=== PATIENT | male | born 1975 | race Asian ===

== ENCOUNTER 2017-11-19 10:12 | Emergency (ER) | payer OTHER ==
[2017-11-19] MEDS ORDERED: NS 1,000 ML IV ONE (10:42)
[2017-11-19 12:01] LABS: PLATELET COUNT 194 10^3/uL (150-400)
[2017-11-19 13:04] VITALS: RESP 18
--- NOTE | 2017-11-19 14:04 | EDPHY ---
H & P Time Seen by Provider: 11/19/17 10:42 HPI/ROS: HPI Flu symptoms. 42-year-old male by private vehicle with his . This patient reports onset of nasal congestion, fever, nonproductive cough, myalgias and arthralgias night. These have persisted since that time. He reports that today he was coughing. He coughed a small amount of blood up with his saliva of and sputum. This is what prompted him to come to the emergency department. He reports continued symptoms as above. ROS: Constitutional: Subjective fevers. Increased fatigue. Eyes: No discharge. No changes in vision. ENT: No sore throat. As above. Respiratory: As above. No shortness of breath. Cardiac: No chest pain, no palpitations. Gastrointestinal: No abdominal pain, no vomiting, no diarrhea. Genitourinary: No hematuria. No dysuria or increased frequency with urination. Musculoskeletal: As above. Skin: No rashes. Neurological: No headache. No focal weakness or altered sensation. Past medical history: Denies any significant past medical history. Social history: Nonsmoker. Here with his . No alcohol. Physical Exam: General Appearance: Alert, no distress. This patient is responding to questions appropriately and in full sentences. This patient appears well- hydrated and well-nourished. Eyes: Pupils equal and round no pallor or injection. No lid edema, erythema or injection. Respiratory: There are no retractions, lungs are clear to auscultation with good air movement bilaterally. Cardiovascular: Regular rate and rhythm. No murmur. Neurological: Motor sensory function is grossly intact. Cranial nerves are normal. Gait is normal. Skin: Warm and dry, no rashes. Musculoskeletal: Neck is supple and nontender. No stridor on auscultation of his neck. No significant cervical, submandibular, submental lymphadenopathy. Extremities are symmetrical. All joints range without pain or impingement. Psychiatric: No agitation. No depression. Database: EKG: Imaging: Chest x-ray PA and lateral; the cardiac mediastinal silhouette is unremarkable. No evidence of infiltrate or pneumothorax. Mild bronchitis. No other acute cardiopulmonary disease process noted. Interpreted by me. Procedures: Emergency department course: Vital signs reviewed. Patient afebrile. Moderately hypertensive. Vital signs otherwise normal. He does not appear toxic. Chest x-ray obtained. Influenza PCR obtained. 1:45 p.m., patient re-evaluated. He appears comfortable at this time. Results of his chest x-ray discussed, diagnosis of influenza B discussed. I discussed the dosing parameters of Tamiflu. This patient is requesting this medication despite this as well as my brief discussion on its utility. I reviewed ibuprofen dosing with him. He is using NyQuil at night which I feel is a good idea to help him sleep. I discussed supportive care. He feels comfortable going home with his . Follow-up and return to emergency department precautions reviewed. All of his questions were answered. He was discharged in good condition. Differential Diagnosis: The differential diagnosis on this patient includes but is not limited to influenza. Pneumonia, other serious bacterial infection unlikely. This represents a partial list of diagnoses considered. These considerations are based on history, physical exam, past history, reassessment and diagnostic testing. Smoking Status: Never smoked Constitutional: Initial Vital Signs Temperature (C) 36.8 C 11/19/17 10:15 Heart Rate 86 11/19/17 10:15 Respiratory Rate 16 11/19/17 10:15 Blood Pressure 165/98 H 11/19/17 10:15 O2 Sat (%) 96 11/19/17 10:15 O2 Delivery Mode Room Air Allergies/Adverse Reactions: No Known Allergies Allergy (Verified 11/19/17 10:13) Home Medications: Medication Instructions Recorded Oseltamivir Phosphate [Tamiflu 75 75 mg PO BID #10 cap 11/19/17 mg (RX)] Medical Decision Making - Diagnostics Imaging Results: Imaging Impressions Chest X-Ray 11/19/17 10:43 Impression: Normal except for minimal airways disease/bronchitis. - Data Points Laboratory Results: Laboratory Results 11/19/17 11:48 11/19/17 11:48 11/19/17 11/19/17 11/19/17 11:48 11:48 11:25 WBC 3.43 10^3/uL L 10^3/uL (3.80-9.50) RBC 5.45 10^6/uL 10^6/uL (4.40-6.38) Hgb 16.3 g/dL g/dL (13.7-17.5) Hct 45.7 % % (40.0-51.0) MCV 83.9 fL fL (81.5-99.8) MCH 29.9 pg pg (27.9-34.1) MCHC 35.7 g/dL g/dL (32.4-36.7) RDW 12.5 % % (11.5-15.2) Plt Count 194 10^3/uL 10^3/uL (150-400) MPV 9.8 fL fL (8.7-11.7) Neut % (Auto) Not Reported Lymph % (Auto) Not Reported [place] % (Auto) Not Reported Eos % (Auto) Not Reported Baso % (Auto) Not Reported Nucleat RBC Rel Count 0.0 % % (0.0-0.2) Absolute Neuts (auto) Not Reported Absolute Lymphs (auto) Not Reported Absolute Monos (auto) Not Reported Absolute Eos (auto) Not Reported Absolute Basos (auto) Not Reported Absolute Nucleated RBC 0.00 10^3/uL 10^3/uL (0-0.01) Immature Gran % Not Reported Seg Neutrophils % 40 % % Band Neutrophils % 2 % % Lymphocytes % 34 % % Monocytes % 23 % % Eosinophils % 1 % % Immature Gran # Not Reported Absolute Seg Neuts 1.37 10^/uL L 10^/uL (1.70-6.50) Absolute Band Neuts 0.07 10^3/uL 10^3/uL (0.00-0.70) Absolute Lymphocytes 1.17 10^3/uL 10^3/uL (1.00-3.00) Absolute Monocytes 0.79 10^3/uL 10^3/uL (0.30-0.80) Absolute Eosinophils 0.03 10^3/uL 10^3/uL (0.03-0.40) RBC/WBC/PLT Morphology NORMAL (NORMAL) Platelet Estimate ADEQUATE (ADEQ) Smear Review By Pending Sodium 148 mEq/L H mEq/L REJ (135-145) Potassium 3.9 mEq/L mEq/L TNP (3.5-5.2) Chloride 110 mEq/L mEq/L TNP (97-110) Carbon Dioxide 21 mEq/l L mEq/l TNP (22-31) Anion Gap 17 mEq/L H mEq/L TNP (8-16) BUN 6 mg/dL L mg/dL TNP (7-23) Creatinine 0.7 mg/dL mg/dL TNP (0.7-1.3) Estimated GFR > 60 TNP Glucose 117 mg/dL H mg/dL TNP (70-100) Calcium 8.9 mg/dL mg/dL TNP (8.5-10.4) 11/19/17 11:25 WBC REJ RBC TNP Hgb TNP Hct TNP MCV TNP MCH TNP MCHC TNP RDW TNP Plt Count TNP MPV TNP Neut % (Auto) TNP Lymph % (Auto) TNP [place] % (Auto) TNP Eos % (Auto) TNP Baso % (Auto) TNP Nucleat RBC Rel Count TNP Absolute Neuts (auto) TNP Absolute Lymphs (auto) TNP Absolute Monos (auto) TNP Absolute Eos (auto) TNP Absolute Basos (auto) TNP Absolute Nucleated RBC TNP Immature Gran % TNP Seg Neutrophils % Band Neutrophils % Lymphocytes % Monocytes % Eosinophils % Immature Gran # TNP Absolute Seg Neuts Absolute Band Neuts Absolute Lymphocytes Absolute Monocytes Absolute Eosinophils RBC/WBC/PLT Morphology Platelet Estimate Smear Review By Sodium Potassium Chloride Carbon Dioxide Anion Gap BUN Creatinine Estimated GFR Glucose Calcium Microbiology Results: MICROBIOLOGY 11/19/17 11:25 Nasal, Sinus - [place] Viral Transport Respiratory Panel ( PCR) - Final Influenza Virus Type B Departure - Departure Disposition: Home, Routine, Self-Care Clinical Impression: Influenza B Condition: Good Instructions: Influenza (ED) Additional Instructions: Read and follow provided instructions. Follow-up with your primary care physician in 1-2 days for re-evaluation. Take medication as prescribed for influenza. Ibuprofen dosin mg every 6 hr with meals for the next 3 days only to treat muscle aches and joint aches. Keep well hydrated. Drink lots of fluids. Get plenty of rest. Continue using NyQuil at night to help you sleep. Return to the emergency department for worsening symptoms, worsening cough, difficulty breathing or other serious concerns. Referrals: NONE *PRIMARY CARE P,. [Primary Care Provider] - As per Instructions Prescriptions: Oseltamivir Phosphate [Tamiflu 75 mg (RX)] 75 mg PO BID #10 cap
[2017-11-19 14:32] VITALS: BP 130/87; PULSE 69; TEMP 97.9; O2SAT 96
== END 2017-11-19 14:32 | disposition home or self-care (01) ==
DX: J10.1 Influenza due to other identified influenza virus with other respiratory manifestations (principal); E86.9 Volume depletion, unspecified